=== PATIENT | female | born 1960 | race African-American/Black ===

== ENCOUNTER 2017-04-14 22:37 | Emergency (ER) | payer MEDICAID ==
[~2017-04-14] VITALS: Ht 175.3 cm; Wt 68.0 kg
[~2017-04-14 22:37] MED LIST: GABA300C PO; GEMF600T PO; OMEP40CA PO
[2017-04-14] MEDS ORDERED: ONDANSETRON HCL 4MG/2ML VIAL IV ONE (23:45)
[2017-04-14] MEDS ORDERED: FENTANYL CITRATE/PF 50MCG/ML 2ML VIAL IV ONE (23:45)
[2017-04-15] MEDS ORDERED: ONDANSETRON HCL 4MG/2ML VIAL IM ONE (00:30)
[2017-04-15] MEDS ORDERED: FENTANYL CITRATE/PF 50MCG/ML 2ML VIAL IM ONE (00:30)
[2017-04-15 00:52] VITALS: BP 133/82
== END 2017-04-15 01:28 | disposition home or self-care (01) ==
LOC: ER 22:37
DX: S93.602A Unspecified sprain of left foot, initial encounter (principal); F17.210 Nicotine dependence, cigarettes, uncomplicated; F12.10 Cannabis abuse, uncomplicated; E78.00 Pure hypercholesterolemia, unspecified; I10 Essential (primary) hypertension; Z85.3 Personal history of malignant neoplasm of breast; Z88.5 Allergy status to narcotic agent; Z90.10 Acquired absence of unspecified breast and nipple; Z71.6 Tobacco abuse counseling; W01.0XXA Fall on same level from slipping, tripping and stumbling without subsequent striking against object, initial encounter; Y93.89 Activity, other specified; Y92.89 Other specified places as the place of occurrence of the external cause
CPT/HCPCS: 73610; 73630; 96372; 99284; 99406; C1893; J2405; J3010; Z7610

== ENCOUNTER 2017-05-20 18:39 | Inpatient (IN) | payer MEDICAID ==
[~2017-05-20] VITALS: Ht 175.3 cm; Wt 68.9 kg
[~2017-05-20 18:39] MED LIST changes: +IOHEXOL-350 100 ML BOTTLE ONE; +SODIUM CHLORIDE 0.9% 10ML VIAL ONE
[2017-05-20] MEDS ORDERED: SODIUM CHLORIDE 0.9% 1,000 ML IV ONE (20:00)
[2017-05-20] MEDS ORDERED: ASPIRIN 81MG TABLET PO STA (20:00)
[2017-05-20] MEDS ORDERED: KETOROLAC 30MG/ML VIAL IV ONE (20:00)
[2017-05-20] MEDS ORDERED: ONDANSETRON HCL 4MG/2ML VIAL IV STA (20:00)
[2017-05-20] MEDS: NITROGLYCERIN 0.4MG TABLET SL SL PRN ×2 (20:14→20:22)
[2017-05-20 20:44] LABS: HEMATOCRIT. 41.5 % (36.0-48.0); HEMOGLOBIN. 13.6 g/dL (12.0-16.0); MEAN CORPUSCULAR HEMOGLOBIN 28.1 pg (28.0-32.0); MEAN CORPUSCULAR VOLUME 86.1 fL (81.0-99.0); MONOCYTES % 6.7 % (2.0-8.0); NEUTROPHILS % 56.3 % (40.0-76.0); PLATELET 310 x1000/uL (130-400); RED BLOOD CELL COUNT 4.83 mill/uL (4.2-5.4); RED CELL DISTRIBUTION WIDTH 14.7 % (11.6-14.6)
[2017-05-20 20:50] LABS: CHLORIDE 106 mEq/L (98-107)
[2017-05-20 20:51] LABS: CARBON DIOXIDE 23 mEq/L (21-32)
[2017-05-20 20:53] LABS: D-DIMER 0.49 mg/L FEU (<0.50); INR 1.1; PARTIAL THROMBOPLASTIN TIME 26.6 sec (24.0-34.0); PROTHROMBIN TIME 11.1 sec
[2017-05-20 20:58] LABS: TROPONIN I < 0.02 ng/mL (0.00-0.04)
[2017-05-20 21:25] LABS: CLARITY URINE CLEAR (CLEAR); COLOR URINE YELLOW (YELLOW); KETONES URINE NEGATIVE (NEGATIVE); LEUKOCYTE ESTERASE URINE NEGATIVE (NEGATIVE); NITRITE URINE NEGATIVE (NEGATIVE); OCCULT BLOOD URINE 1+ (NEGATIVE); PROTEIN URINE NEGATIVE (NEGATIVE); SPECIFIC GRAVITY URINE 1.025 (1.005-1.030)
[2017-05-20] MEDS ORDERED: LEVOFLOXACIN 750MG PREMIX 150 ML IV ONE (22:30)
[2017-05-21] MEDS ORDERED: IPRATROPIUM/ALBUTEROL 0.5-3(2.5)MG/3ML NEB INH PRN (00:30)
[2017-05-21] MEDS ORDERED: ONDANSETRON HCL 4MG/2ML VIAL IV PRN (00:30)
[2017-05-21] MEDS ORDERED: GUAIFENESIN 200MG/10ML SUGAR FREE UDC PO PRN (00:30)
[2017-05-21] MEDS ORDERED: DOCUSATE SODIUM 100MG CAPSULE PO PRN (00:30)
[2017-05-21] MEDS ORDERED: LEVOFLOXACIN 500MG PREMIX 100 ML IV SCH (00:30)
[2017-05-21] MEDS ORDERED: ACETAMINOPHEN 325MG TABLET PO PRN (00:30)
[2017-05-21] MEDS ORDERED: DIPHENHYDRAMINE 50MG/ML VIAL IV PRN (00:30)
[2017-05-21] MEDS ORDERED: CLONIDINE 0.1MG TABLET PO PRN (00:30)
[2017-05-21] MEDS ORDERED: MAGNESIUM/ALUMINUM HYDROXIDE/SIMETHICONE 30ML UDC PO PRN (00:30)
[2017-05-21] MEDS ORDERED: NA PHOS,M-B/NA PHOS,DI-BA ENEMA 118ML PR PRN (00:30)
[2017-05-21] MEDS ORDERED: HYDROCODONE/ACETAMINOPHEN 5/325MG TABLET PO PRN (00:30)
[2017-05-21] MEDS: HYDROMORPHONE HCL/PF 2MG/ML CPJ IV PRN ×6 (01:01→22:28)
[2017-05-21] MEDS: ENOXAPARIN 40MG/0.4ML SYR SUBCUT SCH (01:02)
[2017-05-21] MEDS: LORAZEPAM 2MG/ML CPJ IV PRN ×2 (01:18→14:26)
[2017-05-21] MEDS ORDERED: ATOR20TA PO (02:38)
[2017-05-21] MEDS ORDERED: flexeril PO (02:40)
[2017-05-21] MEDS: OMEPRAZOLE 20MG CAPSULE EXTENDED RELEASE PO SCH ×2 (05:57→16:54)
[2017-05-21] MEDS: GABAPENTIN 300MG CAPSULE PO SCH ×3 (05:57→21:12)
[2017-05-21] MEDS: DEXT 5%/0.45% NACL KCL 10MEQ/L 1,000 ML IV SCH ×3 (06:30→22:56)
[2017-05-21] MEDS: CYCLOBENZAPRINE 10MG TABLET PO SCH ×2 (08:32→16:54)
[2017-05-21] MEDS: ASPIRIN 81MG EC TABLET PO SCH (08:32)
[2017-05-21] MEDS ORDERED: ATORVASTATIN CALCIUM 20MG TABLET PO SCH (21:00)
[2017-05-22] MEDS: CYCLOBENZAPRINE 10MG TABLET PO SCH ×2 (00:36→09:01)
[2017-05-22] MEDS: ENOXAPARIN 40MG/0.4ML SYR SUBCUT SCH (00:37)
[2017-05-22] MEDS: HYDROMORPHONE HCL/PF 2MG/ML CPJ IV PRN ×3 (00:38→07:54)
[2017-05-22] MEDS: GABAPENTIN 300MG CAPSULE PO SCH (05:15)
[2017-05-22 06:32] LABS: BASOPHILS % 0.9 % (0.0-2.0); EOSINOPHILS % 1.2 % (0.0-5.0); HEMATOCRIT. 35.3 % (36.0-48.0); HEMOGLOBIN. 11.5 g/dL (12.0-16.0); LYMPHOCYTES % 43.7 % (20.0-50.0); MEAN CORPUSCULAR HEMOGLOBIN 28.4 pg (28.0-32.0); MEAN PLATELET VOLUME 8.8 fl (7.4-10.4); MONOCYTES % 6.5 % (2.0-8.0); NEUTROPHILS % 47.7 % (40.0-76.0); PLATELET 251 x1000/uL (130-400); RED BLOOD CELL COUNT 4.06 mill/uL (4.2-5.4); RED CELL DISTRIBUTION WIDTH 14.6 % (11.6-14.6)
[2017-05-22 06:48] LABS: CARBON DIOXIDE 22 mEq/L (21-32); CHLORIDE 106 mEq/L (98-107)
[2017-05-22 06:53] LABS: HDL CHOLESTEROL 32 mg/dL (40-59); LDL CHOLESTEROL 64 mg/dL (5-100); T4 FREE 0.74 ng/dL (0.76-1.46)
[2017-05-22] MEDS: OMEPRAZOLE 20MG CAPSULE EXTENDED RELEASE PO SCH (07:52)
[2017-05-22] MEDS: ASPIRIN 81MG EC TABLET PO SCH (09:01)
[2017-05-22 11:10] VITALS: BP 151/82
== END 2017-05-22 11:20 | disposition home or self-care (01) | DRG 203 ==
LOC: ER 22:14 → 7WST 22:59 → EDBEDREQ 23:02 → ENRESERV 23:30
PROVIDERS: ADMIT Internal Medicine; ATTEND Internal Medicine
DX: M94.0 Chondrocostal junction syndrome [Tietze] (principal); R65.10 Systemic inflammatory response syndrome (SIRS) of non-infectious origin without acute organ dysfunction; I11.9 Hypertensive heart disease without heart failure; G62.9 Polyneuropathy, unspecified; E78.5 Hyperlipidemia, unspecified; E86.0 Dehydration; E87.6 Hypokalemia; D72.829 Elevated white blood cell count, unspecified; E78.00 Pure hypercholesterolemia, unspecified; F12.90 Cannabis use, unspecified, uncomplicated; F17.210 Nicotine dependence, cigarettes, uncomplicated; K21.9 Gastro-esophageal reflux disease without esophagitis; Z79.899 Other long term (current) drug therapy; Z85.3 Personal history of malignant neoplasm of breast; Z90.13 Acquired absence of bilateral breasts and nipples; Z88.5 Allergy status to narcotic agent
CPT/HCPCS: 36415; 71010; 71275; 80053; 80061; 81001; 83605; 83880; 84439; 84443; 84484; 85025; 85379; 85610; 85730; 86850; 86900; 87040; 87086; 93005; 93970; 96361; 96374; 96375; 99285; A4216; J1170; J1650; J1885; J1956; J2060; J2405; J7030; Q9967

== ENCOUNTER 2017-08-18 21:00 | Inpatient (IN) | payer MEDICAID ==
[~2017-08-18] VITALS: Ht 175.3 cm; Wt 73.0 kg
[~2017-08-18 21:00] MED LIST changes: +ATOR20TA PO; -IOHEXOL-350 100 ML BOTTLE ONE; -SODIUM CHLORIDE 0.9% 10ML VIAL ONE; +flexeril PO
[2017-08-18] MEDS ORDERED: ONDANSETRON HCL 4MG/2ML VIAL IV STA (22:33)
[2017-08-18] MEDS ORDERED: KETOROLAC 30MG/ML VIAL IV STA (22:33)
[2017-08-18] MEDS ORDERED: MAGNESIUM/ALUMINUM HYDROXIDE/SIMETHICONE 30ML UDC PO ONE (22:45)
[2017-08-18] MEDS ORDERED: VISCOUS LIDOCAINE 2% 15 ML UDC PO ONE (22:45)
[2017-08-18] MEDS ORDERED: ASPIRIN 81MG TABLET PO ONE (22:45)
[2017-08-18 22:59] LABS: BASOPHILS % 1.2 % (0.0-2.0); EOSINOPHILS % 1.8 % (0.0-5.0); HEMATOCRIT. 38.3 % (36.0-48.0); HEMOGLOBIN. 12.5 g/dL (12.0-16.0); LYMPHOCYTES % 32.2 % (20.0-50.0); MEAN CORPUSCULAR HEMOGLOBIN 28.2 pg (28.0-32.0); MEAN PLATELET VOLUME 7.8 fl (7.4-10.4); MONOCYTES % 6.7 % (2.0-8.0); NEUTROPHILS % 58.1 % (40.0-76.0); PLATELET 317 x1000/uL (130-400); RED BLOOD CELL COUNT 4.45 mill/uL (4.2-5.4); RED CELL DISTRIBUTION WIDTH 14.5 % (11.6-14.6)
[2017-08-18 23:11] LABS: CARBON DIOXIDE 20 mEq/L (21-32); CHLORIDE 111 mEq/L (98-107); ETHANOL BLOOD < 10 mg/dL
[2017-08-18 23:14] LABS: TROPONIN I < 0.02 ng/mL (0.00-0.04)
[2017-08-19] MEDS ORDERED: SODIUM CHLORIDE 0.9% 1,000 ML IV NR (01:17)
[2017-08-19] MEDS ORDERED: MORPHINE SULFATE 4 MG/ML CPJ (NOT FOR IM USE) IV NR (01:43)
[2017-08-19] MEDS ORDERED: LEVOFLOXACIN 750MG PREMIX 150 ML IV NR (01:45)
[2017-08-19] MEDS ORDERED: MORPHINE SULFATE 2 MG/ML CPJ (NOT FOR IM USE) IV ONE (06:15)
[2017-08-19] MEDS ORDERED: MORPHINE SULFATE 4 MG/ML CPJ (NOT FOR IM USE) IV SCH (06:19)
[2017-08-19 07:51] LABS: *AMPHETAMINES SCREEN URINE NEGATIVE (NEGATIVE); *BARBITURATES SCREEN URINE NEGATIVE (NEGATIVE); *BENZODIAZEPINES SCREEN URINE PRESUMTIVE POSITIVE (NEGATIVE); *COCAINE SCREEN URINE NEGATIVE (NEGATIVE); CANNABINOID URINE SCREEN PRESUMTIVE POSITIVE (NEGATIVE); METHADONE URINE SCREEN NEGATIVE (NEGATIVE); OPIATES URINE SCREEN PRESUMTIVE POSITIVE (NEGATIVE); PHENCYCLIDINE URINE SCREEN NEGATIVE (NEGATIVE)
[2017-08-19 08:45] VITALS: BP 129/69
[2017-08-19 09:17] VITALS: BP 129/69
[2017-08-19] MEDS ORDERED: HYDROCODONE/ACETAMINOPHEN 10/325MG TABLET PO PRN (09:30)
[2017-08-19 12:00] VITALS: BP_SYST 155; BP_DIAS 94; BP_DIAS 98
[2017-08-19] MEDS: OMEPRAZOLE 20MG CAPSULE EXTENDED RELEASE PO SCH ×2 (12:50→21:19)
[2017-08-19] MEDS: LORAZEPAM 1MG TABLET PO PRN ×2 (12:52→21:19)
[2017-08-19] MEDS ORDERED: SODIUM CHLORIDE 0.9% 10ML VIAL ONE (13:57)
[2017-08-19] MEDS: HYDROCODONE/ACETAMINOPHEN 10/325MG TABLET PO PRN ×2 (15:37→21:19)
[2017-08-19 16:00] VITALS: BP 148/92
[2017-08-19 20:00] VITALS: BP 132/90
[2017-08-20] MEDS ORDERED: ONDANSETRON HCL 4MG/2ML VIAL IV PRN (00:30)
[2017-08-20] MEDS: HYDROCODONE/ACETAMINOPHEN 10/325MG TABLET PO PRN ×2 (01:38→05:43)
[2017-08-20 04:00] VITALS: BP 120/86
[2017-08-20] MEDS: LORAZEPAM 1MG TABLET PO PRN (05:45)
[2017-08-20] MEDS: OMEPRAZOLE 20MG CAPSULE EXTENDED RELEASE PO SCH (06:34)
[2017-08-20 08:00] VITALS: BP 108/82
[2017-08-20] MEDS ORDERED: LORA-250 PO (08:21)
== END 2017-08-20 09:40 | disposition home or self-care (01) | DRG 243 ==
LOC: ER 21:00 → 6WST 08-19 02:31 → ENRESERV 08-19 06:54
PROVIDERS: ADMIT Internal Medicine; ATTEND Internal Medicine
DX: K21.9 Gastro-esophageal reflux disease without esophagitis (principal); I24.9 Acute ischemic heart disease, unspecified; K59.00 Constipation, unspecified; I10 Essential (primary) hypertension; E78.5 Hyperlipidemia, unspecified; F17.210 Nicotine dependence, cigarettes, uncomplicated; G89.29 Other chronic pain; J44.9 Chronic obstructive pulmonary disease, unspecified; Z85.3 Personal history of malignant neoplasm of breast; Z90.10 Acquired absence of unspecified breast and nipple; Z71.6 Tobacco abuse counseling; Z79.899 Other long term (current) drug therapy
CPT/HCPCS: 36415; 71010; 78582; 80053; 80305; 83605; 83690; 83880; 84484; 85025; 85379; 87040; 87086; 93005; 96361; 96374; 96375; 99285; A4216; A9558; C1893; G0482; J1885; J1956; J2270; J2405

== ENCOUNTER 2022-06-12 09:27 | Inpatient (IN) | payer MEDICAID ==
[~2022-06-12] VITALS: Ht 175.3 cm; Wt 60.1 kg
[~2022-06-12 09:27] MED LIST changes: +HYDR-4009 MT; +LORA-250 PO
[2022-06-12] MEDS ORDERED: MORPHINE SULFATE 4 MG/ML CPJ (NOT FOR IM USE) IV ONE (11:30)
[2022-06-12 11:50] LABS: BASOPHILS % 1.4 % (0.0-2.0); EOSINOPHILS % 0.3 % (0.0-5.0); HEMATOCRIT. 42.1 % (36.0-48.0); HEMOGLOBIN. 13.5 g/dL (12.0-16.0); LYMPHOCYTES % 22.3 % (20.0-50.0); MEAN CORPUSCULAR VOLUME 90.7 fL (81.0-99.0); MEAN PLATELET VOLUME 8.2 fl (7.4-10.4); MONOCYTES % 6.8 % (2.0-8.0); NEUTROPHILS % 69.2 % (40.0-76.0); PLATELET 270 x1000/uL (130-400); RED BLOOD CELL COUNT 4.65 mill/uL (4.2-5.4); RED CELL DISTRIBUTION WIDTH 14.8 % (11.6-14.6)
[2022-06-12 11:57] LABS: CHLORIDE 109 mEq/L (98-107)
[2022-06-12 18:16] VITALS: BP 140/78
[2022-06-12] MEDS ORDERED: ONDANSETRON HCL 4MG/2ML INJ IV PRN (18:45)
[2022-06-12] MEDS ORDERED: MAGNESIUM/ALUMINUM HYDROXIDE/SIMETHICONE 30ML UDC PO PRN (18:45)
[2022-06-12] MEDS ORDERED: NALOXONE HCL 0.4MG/ML VIAL IV PRN (18:45)
[2022-06-12] MEDS ORDERED: ACETAMINOPHEN 325MG TABLET PO PRN (18:45)
[2022-06-12] MEDS ORDERED: CLONIDINE 0.1MG TABLET PO PRN (18:45)
[2022-06-12] MEDS: HYDROCODONE/ACETAMINOPHEN 5/325MG TABLET PO PRN ×2 (18:58→23:07)
[2022-06-12 20:00] VITALS: BP 137/86
[2022-06-12] MEDS: OMEPRAZOLE 20MG CAPSULE EXTENDED RELEASE PO SCH (20:26)
[2022-06-12] MEDS: ENOXAPARIN 40MG/0.4ML SYR SUBCUT SCH (20:26)
[2022-06-13] VITALS (9 sets, daily range): BP systolic 117–166; BP diastolic 81–96
[2022-06-13] MEDS: HYDROCODONE/ACETAMINOPHEN 5/325MG TABLET PO PRN (03:04)
[2022-06-13] MEDS ORDERED: MORPHINE SULFATE 2 MG/ML CPJ (NOT FOR IM USE) IV NR (03:30)
[2022-06-13 06:09] LABS: CHLORIDE 106 mEq/L (98-107)
[2022-06-13 06:21] LABS: BASOPHILS % 1.1 % (0.0-2.0); EOSINOPHILS % 1.1 % (0.0-5.0); HEMATOCRIT. 40.4 % (36.0-48.0); HEMOGLOBIN. 13.1 g/dL (12.0-16.0); LYMPHOCYTES % 45.9 % (20.0-50.0); MEAN CORPUSCULAR HEMOGLOBIN 29.1 pg (28.0-32.0); MEAN CORPUSCULAR VOLUME 89.8 fL (81.0-99.0); MONOCYTES % 10.2 % (2.0-8.0); NEUTROPHILS % 41.7 % (40.0-76.0); PLATELET 273 x1000/uL (130-400); RED CELL DISTRIBUTION WIDTH 14.4 % (11.6-14.6)
[2022-06-13 06:22] LABS: HDL CHOLESTEROL 43 mg/dL (40-59); LDL CHOLESTEROL 103 mg/dL (5-100); PHOSPHORUS 3.5 mg/dL (2.5-4.9); T4 FREE 0.71 ng/dL (0.76-1.46)
[2022-06-13] MEDS: HYDROCODONE/ACETAMINOPHEN 10/325MG TABLET PO PRN (07:28)
[2022-06-13] MEDS: OMEPRAZOLE 20MG CAPSULE EXTENDED RELEASE PO SCH (07:28)
[2022-06-13 12:43] LABS: CLARITY URINE CLEAR (CLEAR); COLOR URINE DARK YELLOW (YELLOW); KETONES URINE 1+ (NEGATIVE); LEUKOCYTE ESTERASE URINE NEGATIVE (NEGATIVE); NITRITE URINE NEGATIVE (NEGATIVE); OCCULT BLOOD URINE 1+ (NEGATIVE); PROTEIN URINE TRACE (NEGATIVE); SPECIFIC GRAVITY URINE 1.027 (1.005-1.030)
[2022-06-13 13:11] LABS: *AMPHETAMINES SCREEN URINE NEGATIVE (NEGATIVE); *BARBITURATES SCREEN URINE NEGATIVE (NEGATIVE); *BENZODIAZEPINES SCREEN URINE NEGATIVE (NEGATIVE); *COCAINE SCREEN URINE NEGATIVE (NEGATIVE); CANNABINOID URINE SCREEN PRESUMTIVE POSITIVE (NEGATIVE); METHADONE URINE SCREEN NEGATIVE (NEGATIVE); OPIATES URINE SCREEN PRESUMTIVE POSITIVE (NEGATIVE); PHENCYCLIDINE URINE SCREEN NEGATIVE (NEGATIVE)
[2022-06-13] MEDS: LEVOTHYROXINE SODIUM 25MCG TABLET PO SCH (14:17)
[2022-06-13] MEDS: MORPHINE SULFATE 2 MG/ML CPJ (NOT FOR IM USE) IV PRN ×2 (14:18→20:51)
[2022-06-13] MEDS: ATORVASTATIN CALCIUM 40MG TABLET PO SCH (20:51)
[2022-06-13] MEDS: ENOXAPARIN 40MG/0.4ML SYR SUBCUT SCH (20:51)
[2022-06-14] VITALS (7 sets, daily range): BP systolic 138–157; BP diastolic 82–97
[2022-06-14] MEDS: MORPHINE SULFATE 2 MG/ML CPJ (NOT FOR IM USE) IV PRN ×5 (00:57→22:42)
[2022-06-14 07:23] LABS: EOSINOPHILS % 1.5 % (0.0-5.0); HEMATOCRIT. 42.6 % (36.0-48.0); HEMOGLOBIN. 13.6 g/dL (12.0-16.0); LYMPHOCYTES % 45.6 % (20.0-50.0); MEAN CORPUSCULAR HEMOGLOBIN 28.7 pg (28.0-32.0); MEAN PLATELET VOLUME 9.8 fl (7.4-10.4); MONOCYTES % 7.8 % (2.0-8.0); NEUTROPHILS % 44.1 % (40.0-76.0); PLATELET 273 x1000/uL (130-400); RED BLOOD CELL COUNT 4.73 mill/uL (4.2-5.4)
[2022-06-14] MEDS ORDERED: NITROGLYCERIN 50MCG/ML 10ML VIAL (CATH LAB) IV ONE (08:28)
[2022-06-14] MEDS ORDERED: NICARDIPINE 100MCG/ML 10ML VIAL (CATH LAB) IV ONE (08:28)
[2022-06-14] MEDS: LEVOTHYROXINE SODIUM 25MCG TABLET PO SCH (08:31)
[2022-06-14] MEDS: ASPIRIN 81MG TABLET PO SCH (08:31)
[2022-06-14] MEDS ORDERED: FAMOTIDINE 20MG TABLET PO SCH (09:00)
[2022-06-14] MEDS ORDERED: AMLODIPINE 5MG TABLET PO SCH (10:00)
[2022-06-14 11:04] LABS: CHLORIDE 109 mEq/L (98-107)
[2022-06-14] MEDS: PANTOPRAZOLE SODIUM 40 MG/VIAL IV SCH (12:15)
[2022-06-14] MEDS ORDERED: IODIXANOL 320MG/ML 100 ML BOTTLE IV ONE (12:32)
[2022-06-14] MEDS ORDERED: DIPHENHYDRAMINE 50MG/ML VIAL ONE (12:32)
[2022-06-14] MEDS ORDERED: LIDOCAINE HCL/PF 1% 10 MG/ML 5ML VIAL ONE (12:32)
[2022-06-14] MEDS ORDERED: VERAPAMIL HCL 2.5 MG/1 ML 2ML VIAL IV ONE (12:33)
[2022-06-14] MEDS ORDERED: FENTANYL CITRATE/PF 50MCG/ML 2ML VIAL ONE (12:33)
[2022-06-14] MEDS ORDERED: MIDAZOLAM HCL 2 MG/2 ML VIAL ONE (12:33)
[2022-06-14] MEDS ORDERED: HEPARIN 1000 UNITS/ML 10ML ONE (12:33)
[2022-06-14] MEDS ORDERED: ATROPINE SULFATE 1MG/10ML SYR IV PRN (14:45)
[2022-06-14] MEDS ORDERED: SODIUM CHLORIDE 0.9% 250 ML IV ONE (18:15)
[2022-06-14] MEDS ORDERED: DILTIAZEM HCL 5MG/ML 5ML VIAL IV PRN (18:15)
[2022-06-14] MEDS: DILTIAZEM HCL 30MG TABLET PO SCH ×2 (18:26→23:55)
[2022-06-14] MEDS: ATORVASTATIN CALCIUM 40MG TABLET PO SCH (21:24)
[2022-06-14] MEDS: ENOXAPARIN 40MG/0.4ML SYR SUBCUT SCH (21:25)
[2022-06-14] MEDS: HYDROCODONE/ACETAMINOPHEN 10/325MG TABLET PO PRN (21:25)
[2022-06-14] MEDS ORDERED: ZOLPIDEM TARTRATE 5MG TABLET PO PRN (22:00)
[2022-06-15] VITALS: BP 112/73
[2022-06-15] MEDS ORDERED: DILTIAZEM HCL 30MG TABLET PO SCH
[2022-06-15 04:00] VITALS: BP 119/71
[2022-06-15] MEDS: MORPHINE SULFATE 2 MG/ML CPJ (NOT FOR IM USE) IV PRN ×2 (04:09→10:42)
[2022-06-15] MEDS: DILTIAZEM HCL 30MG TABLET PO SCH ×3 (05:52→17:03)
[2022-06-15] MEDS: LEVOTHYROXINE SODIUM 25MCG TABLET PO SCH (05:53)
[2022-06-15 08:00] VITALS: BP 134/78
[2022-06-15 08:21] LABS: BASOPHILS % 1.1 % (0.0-2.0); CHLORIDE 108 mEq/L (98-107); EOSINOPHILS % 2.6 % (0.0-5.0); HEMATOCRIT. 41.7 % (36.0-48.0); HEMOGLOBIN. 13.6 g/dL (12.0-16.0); LYMPHOCYTES % 38.9 % (20.0-50.0); MEAN CORPUSCULAR VOLUME 89.4 fL (81.0-99.0); MEAN PLATELET VOLUME 8.8 fl (7.4-10.4); MONOCYTES % 10.2 % (2.0-8.0); NEUTROPHILS % 47.2 % (40.0-76.0); PLATELET 256 x1000/uL (130-400); RED BLOOD CELL COUNT 4.67 mill/uL (4.2-5.4)
[2022-06-15] MEDS: PANTOPRAZOLE SODIUM 40 MG/VIAL IV SCH (09:20)
[2022-06-15] MEDS: ASPIRIN 81MG TABLET PO SCH (09:21)
[2022-06-15 12:00] VITALS: BP 120/81
[2022-06-15] MEDS ORDERED: DILT120C88 MT (14:38)
[2022-06-15] MEDS ORDERED: ASPI-1160 PO (14:38)
[2022-06-15] MEDS ORDERED: LEVO25TA7 PO (14:38)
[2022-06-15] MEDS ORDERED: LIP40 PO (14:38)
[2022-06-15 16:00] VITALS: BP 137/86
[2022-06-15 17:09] VITALS: BP 137/86
== END 2022-06-15 18:00 | disposition home or self-care (01) | DRG 191 ==
LOC: ER 09:27 → 7WST 14:19 → EDBEDREQTM 14:24 → EDBEDREQ 14:24 → ENRESERV 16:07
PROVIDERS: ADMIT Internal Medicine; ATTEND Internal Medicine
PROC: 4A023N7 Measurement of Cardiac Sampling and Pressure, Left Heart, Percutaneous Approach (ICD-10-PCS; principal; 2022-06-14)
PROC: B211YZZ Fluoroscopy of Multiple Coronary Arteries using Other Contrast (ICD-10-PCS; 2022-06-14)
PROC: B215YZZ Fluoroscopy of Left Heart using Other Contrast (ICD-10-PCS; 2022-06-14)
DX: I25.10 Atherosclerotic heart disease of native coronary artery without angina pectoris (principal); E03.9 Hypothyroidism, unspecified; I10 Essential (primary) hypertension; Z20.822 Contact with and (suspected) exposure to COVID-19; E78.00 Pure hypercholesterolemia, unspecified; K21.9 Gastro-esophageal reflux disease without esophagitis; E78.5 Hyperlipidemia, unspecified; J98.11 Atelectasis; F17.210 Nicotine dependence, cigarettes, uncomplicated; F12.90 Cannabis use, unspecified, uncomplicated; Z79.82 Long term (current) use of aspirin; Z85.3 Personal history of malignant neoplasm of breast; Z79.899 Other long term (current) drug therapy; Z90.13 Acquired absence of bilateral breasts and nipples; Z71.6 Tobacco abuse counseling
CPT/HCPCS: 36415; 71045; 80048; 80053; 80061; 80076; 80305; 81003; 83735; 83880; 84100; 84439; 84443; 84484; 85025; 87426; 93005; 93306; 93458; 93970; 99285; C1769; C1887; C1893; C9113; J1200; J1644; J1650; J2250; J2270; J2405; J3010; J3490; Q9967

== ENCOUNTER 2023-05-28 11:53 | Emergency (ER) | payer OTHER ==
[~2023-05-28] VITALS: Ht 167.6 cm; Wt 50.4 kg
[~2023-05-28 11:53] MED LIST changes: +ASPI-1160 PO; -ATOR20TA PO; +DILT120C88 MT; +DOCU250C14 MT; +LEVO25TA7 PO; +LIP40 PO
[2023-05-28 12:09] VITALS: O2SAT 100
[2023-05-28 12:55] LABS: BASOPHILS % 1.8 % (0.0-2.0); EOSINOPHILS % 0.8 % (0.0-5.0); HEMATOCRIT. 43.8 % (36.0-48.0); HEMOGLOBIN. 14.3 g/dL (12.0-16.0); LYMPHOCYTES % 33.2 % (20.0-50.0); MEAN CORPUSCULAR HEMOGLOBIN 29.2 pg (28.0-32.0); MEAN CORPUSCULAR HGB CONC 32.7 g/dL (31.0-37.0); MEAN CORPUSCULAR VOLUME 89.3 fL (81.0-99.0); MONOCYTES % 4.9 % (2.0-8.0); NEUTROPHILS % 59.3 % (40.0-76.0); PLATELET 326 x1000/uL (130-400); RED BLOOD CELL COUNT 4.91 mill/uL (4.2-5.4)
[2023-05-28 13:03] LABS: CHLORIDE 113 mEq/L (98-107); INDEX HEMOLYSI 1 (1-3); INDEX ICTERIC 1 (1-4); INDEX LIPEMIC 1 (1-3); POTASSIUM 3.2 mEq/L (3.5-5.1); SODIUM 141 mEq/L (136-145)
[2023-05-28 13:12] LABS: ALANINE AMINOTRANSFERASE 17 IU/L (13-61); ALBUMIN 3.5 g/dL (3.4-5.0); ASPARTATE AMINOTRANSFERASE 12 IU/L (15-37); BILIRUBIN TOTAL 0.5 mg/dL (0.1-1.0); CALCIUM 8.9 mg/dL (8.5-10.1); CARBON DIOXIDE 23 mEq/L (21-32); CREATININE 0.6 mg/dL (0.6-1.3); PROTEIN TOTAL 7.7 g/dL (6.0-8.3); UREA NITROGEN BLOOD 13 mg/dL (7-21)
[2023-05-28 13:55] LABS: CLARITY URINE CLOUDY (CLEAR); COLOR URINE DARK YELLOW (YELLOW); GLUCOSE URINE NEGATIVE (NEGATIVE); KETONES URINE TRACE (NEGATIVE); LEUKOCYTE ESTERASE URINE TRACE (NEGATIVE); NITRITE URINE NEGATIVE (NEGATIVE); OCCULT BLOOD URINE TRACE (NEGATIVE); PROTEIN URINE TRACE (NEGATIVE); SPECIFIC GRAVITY URINE 1.024 (1.005-1.030)
[2023-05-28 13:59] LABS: BACTERIA URINE NONE SEEN; SQUAMOUS EPITHELIAL CELL URINE 1+ /lpf (RARE/1+); WBC URINE 0-2 /hpf (0-2); YEAST URINE NONE SEEN
[2023-05-28 14:23] LABS: CALCIUM OXALATE CRYSTALS URINE 2+ /lpf
[2023-05-28 14:24] LABS: MUCUS URINE 2+ /lpf (< = 2+)
[2023-05-28 14:34] LABS: GLUCOSE 134 mg/dL (70-105)
[2023-05-28] MEDS ORDERED: CEFTRIAXONE 1GM PREMIX 50 ML IV ONE (16:15)
[2023-05-28] MEDS ORDERED: SODIUM CHLORIDE 0.9% 1000ML BAG (SEPSIS BOLUS) IV ONE (16:15)
[2023-05-28] MEDS ORDERED: POTASSIUM CHLORIDE 20MEQ TABLET SR PO ONE (16:45)
[2023-05-28 16:56] LABS: TROPONIN I HIGH SENSITIVITY 9 ng/L (<54)
[2023-05-28] MEDS ORDERED: CEFTRIAXONE 1GM PREMIX 50 ML IV NR (22:45)
[2023-05-28] MEDS ORDERED: POTASSIUM CHLORIDE 20MEQ TABLET SR PO NR (22:45)
[2023-05-28 22:50] VITALS: BP 142/86; PULSE 76; RESP 16; TEMP 98.1
== END 2023-05-28 23:05 | disposition short-term general hospital (02) ==
LOC: ER 11:53 → CANBEDREQ 18:31 → ER 23:05
DX: R41.0 Disorientation, unspecified (principal); E87.6 Hypokalemia; R62.7 Adult failure to thrive; Z68.1 Body mass index [BMI] 19.9 or less, adult; Z98.890 Other specified postprocedural states
CPT/HCPCS: 36415; 71045; 74176; 80053; 81003; 83605; 84484; 85025; 93005; 96360; 99285; J7030

== ENCOUNTER 2024-03-04 11:04 | Emergency (ER) | payer OTHER ==
[~2024-03-04] VITALS: Ht 175.3 cm; Wt 49.0 kg
[2024-03-04 11:13] VITALS: O2SAT 97
[2024-03-04] MEDS: KETOROLAC 30MG/ML VIAL IM ONE (14:16)
[2024-03-04 14:47] VITALS: BP 158/98; PULSE 93; RESP 18; TEMP 98.7
[2024-03-21] MEDS ORDERED: LISI2.5T47 PO (12:57)
[2024-03-21] MEDS ORDERED: HYDR-4009 PO (12:57)
[2024-03-21] MEDS ORDERED: METO-396 PO (13:01)
[2024-03-21] MEDS ORDERED: GABA-290 PO (13:01)
[2024-03-21] MEDS ORDERED: LISI10TA26 PO (20:58)
[2024-03-21] MEDS ORDERED: QUET200T30 PO (20:58)
[2024-03-21] MEDS ORDERED: AMLO10TA80 PO (20:58)
[2024-03-21] MEDS ORDERED: MEGE40TA5 PO (20:58)
[2024-03-21] MEDS ORDERED: METO-539 PO (20:58)
[2024-03-22] MEDS ORDERED: KEPP500 MT (17:05)
[2024-03-22] MEDS ORDERED: LEVO-65 MT (17:07)
== END 2024-03-04 14:49 | disposition home or self-care (01) ==
LOC: ER 11:04
DX: M79.605 Pain in left leg (principal); F12.10 Cannabis abuse, uncomplicated; Z98.890 Other specified postprocedural states
CPT/HCPCS: 99285; 93971; 96372; J1885

== ENCOUNTER 2024-03-09 08:07 | Emergency (ER) | payer OTHER ==
[~2024-03-09] VITALS: Ht 175.3 cm; Wt 51.0 kg
[2024-03-09 08:09] VITALS: O2SAT 99
[2024-03-09] MEDS ORDERED: KETOROLAC 60MG/2ML VIAL IM ONE (09:15)
[2024-03-09] MEDS: KETOROLAC 30MG/ML VIAL IM NR (10:09)
[2024-03-09] MEDS: HYDROCODONE/ACETAMINOPHEN 5/325MG TABLET PO ONE (10:09)
[2024-03-09] MEDS ORDERED: TRAM50TA3 MT (11:58)
[2024-03-09] MEDS: LIDOCAINE 5% PATCH TOP SCH (12:11)
[2024-03-09 12:12] VITALS: BP 145/88; PULSE 88; RESP 16; TEMP 98.6
== END 2024-03-09 11:29 | disposition home or self-care (01) ==
LOC: ER 08:07
DX: M79.672 Pain in left foot (principal); F12.90 Cannabis use, unspecified, uncomplicated; Z98.890 Other specified postprocedural states; Z85.9 Personal history of malignant neoplasm, unspecified
CPT/HCPCS: 73630; 93922; 96372; 99285; J1885

== ENCOUNTER 2025-07-11 23:10 | Emergency (ER) | payer OTHER ==
[~2025-07-11] VITALS: Ht 160 cm; Wt 46.0 kg
[~2025-07-11 23:10] MED LIST changes: +AMLO10TA80 PO; -ASPI-1160 PO; -DILT120C88 MT; -DOCU250C14 MT; -GABA300C PO; -GEMF600T PO; -HYDR-4009 MT; +KEPP500 MT; -LEVO25TA7 PO; -LIP40 PO; +LISI10TA26 PO; -LORA-250 PO; +MEGE40TA5 PO; +METO-539 PO; -OMEP40CA PO; +QUET200T30 PO; -flexeril PO
[2025-07-11 23:11] VITALS: O2SAT 98
[2025-07-12] MEDS: LEVETIRACETAM 1000MG PREMIX 100 ML IV STA (00:24)
[2025-07-12 00:28] LABS: BASOPHILS % 1.2 % (0.0-2.0); EOSINOPHILS % 1.7 % (0.0-5.0); HEMATOCRIT. 43.6 % (36.0-48.0); HEMOGLOBIN. 14.2 g/dL (12.0-16.0); LYMPHOCYTES % 38.7 % (20.0-50.0); MEAN PLATELET VOLUME 8.6 fl (7.4-10.4); MONOCYTES % 6.5 % (2.0-8.0); NEUTROPHILS % 51.9 % (40.0-76.0); PLATELET 193 x1000/uL (130-400); RED BLOOD CELL COUNT 4.87 mill/uL (4.2-5.4); RED CELL DISTRIBUTION WIDTH 13.3 % (11.6-14.6)
[2025-07-12 00:45] LABS: CREATININE 0.7 mg/dL (0.6-1.0); UREA NITROGEN BLOOD 7 mg/dL (9-23)
[2025-07-12 00:46] LABS: TROPONIN I HIGH SENSITIVITY 25 ng/L (3.0-34)
[2025-07-12 00:47] LABS: ASPARTATE AMINOTRANSFERASE 16 IU/L (<34); BILIRUBIN DIRECT 0.2 mg/dL (<=3.0); BILIRUBIN TOTAL 0.6 mg/dL (0.1-1.0); PROTEIN TOTAL 7.1 g/dL (6.0-8.3)
[2025-07-12] MEDS: ACETAMINOPHEN 325MG TABLET PO ONE (01:13)
[2025-07-12 02:13] LABS: CLARITY URINE CLEAR (CLEAR); COLOR URINE YELLOW (YELLOW); GLUCOSE URINE NEGATIVE (NEGATIVE); KETONES URINE TRACE (NEGATIVE); LEUKOCYTE ESTERASE URINE NEGATIVE (NEGATIVE); NITRITE URINE NEGATIVE (NEGATIVE); OCCULT BLOOD URINE 1+ (NEGATIVE); PH URINE 6.5 (4.5-8.0); PROTEIN URINE 2+ (NEGATIVE); SPECIFIC GRAVITY URINE 1.017 (1.005-1.030); UROBILINOGEN URINE 1.0 E.U./dL (0.2-1.0)
[2025-07-12 02:18] LABS: TROPONIN I HIGH SENSITIVITY 25 ng/L (3.0-34)
[2025-07-12 02:25] LABS: *AMPHETAMINES SCREEN URINE NEGATIVE (NEGATIVE); *BARBITURATES SCREEN URINE NEGATIVE (NEGATIVE); *BENZODIAZEPINES SCREEN URINE NEGATIVE (NEGATIVE); *COCAINE SCREEN URINE NEGATIVE (NEGATIVE); CANNABINOID URINE SCREEN PRESUMPTIVE POSITIVE (NEGATIVE); ECSTASY MDMA SCREEN URINE NEGATIVE (NEGATIVE); METHADONE URINE SCREEN NEGATIVE (NEGATIVE); OPIATES URINE SCREEN NEGATIVE (NEGATIVE); PHENCYCLIDINE URINE SCREEN NEGATIVE (NEGATIVE)
[2025-07-12 02:45] LABS: BACTERIA URINE TRACE; SQUAMOUS EPITHELIAL CELL URINE 1+ /lpf (RARE/1+); WBC URINE 0-2 /hpf (0-2)
[2025-07-12] MEDS: KETOROLAC 15MG/ML VIAL IV ONE (03:31)
[2025-07-12 04:28] VITALS: BP 157/87; PULSE 87; RESP 11; TEMP 36.9; O2SAT 97
== END 2025-07-12 04:54 | disposition short-term general hospital (02) ==
LOC: ER 23:19
DX: R56.9 Unspecified convulsions (principal); I10 Essential (primary) hypertension; J44.9 Chronic obstructive pulmonary disease, unspecified; F12.90 Cannabis use, unspecified, uncomplicated; Z79.899 Other long term (current) drug therapy; Z90.10 Acquired absence of unspecified breast and nipple
CPT/HCPCS: 36415 ×2; 71045; 93005; 99285; 80076; 80305; 80048; 81003; 80320; 83735; 85025; 84484; 70450; 96365; 96375; J1953; J1885; G0480